=== PATIENT | female | born 1965 | race Caucasian/White ===

== ENCOUNTER 2021-11-14 11:47 | Outpatient (CLI) | payer BC, SELFPAY ==
[2021-11-14 15:32] LABS: Cholesterol* 215 mg/dL (90-199)
[2021-11-14 15:33] LABS: Glucose* 107 mg/dL (60-115); HDL Cholesterol* 61 mg/dL (>=50); LDL Cholesterol Calculated 129 mg/dL (<100); Triglycerides* 123 mg/dL (40-149)
[2021-11-14 15:51] LABS: Vitamin D 25 Hydroxy* 32 ng/mL (30-80)
== END 2021-11-14 11:48 | disposition home or self-care (01) ==
PROVIDERS: PCP Family Medicine; Visit Provider Family Medicine
DX: Z01.419 Encounter for gynecological examination (general) (routine) without abnormal findings (principal); E55.9 Vitamin D deficiency, unspecified; Z13.6 Encounter for screening for cardiovascular disorders; Z13.1 Encounter for screening for diabetes mellitus
CPT/HCPCS: 80061; 82306; 82947

== ENCOUNTER 2021-11-21 11:21 | Outpatient (CLI) | payer BC, SELFPAY ==
--- NOTE | 2021-11-21 11:30 | CRLHL7_ITS ---
For Patients: As a result of the Century Cures Act, medical imaging exams and procedure reports are released immediately into your electronic medical record. You may view this report before your referring provider. If you have questions, please contact your health care provider. BILATERAL SCREENING MAMMOGRAM WITH COMPUTER-AIDED DETECTION AND TOMOSYNTHESIS TECHNIQUE: CC and MLO views were obtained. These mammographic images have been obtained using full-field digital technique. These mammographic images were interpreted with the benefit of computer-aided detection. Breast Tomosynthesis was used in this interpretation. COMPARISON FILM: 03/31/19 diag, 03/28/19 scrn, 10/22/16, 10/02/14. FINDINGS: There are scattered areas of fibroglandular density IMPRESSION: There is no radiographic evidence for malignancy. ASSESSMENT: BI-RADS Category 1: Negative RECOMMENDATION: Routine screening mammogram in 1 year. A lay language report of this examination will be provided to the patient. Ning Card M.D. Diagnostic/Breast Radiologist [email or web address] TRUE/Dictated by: Ning Card MD @ 11/21/2021 12:27:00 PM (Electronically Signed)
== END 2021-11-21 11:22 | disposition home or self-care (01) ==
LOC: MAMMO 11:22
PROVIDERS: PCP Family Medicine; Visit Provider Family Medicine
DX: Z12.31 Encounter for screening mammogram for malignant neoplasm of breast (principal)
CPT/HCPCS: 77063; 77067

== ENCOUNTER 2022-02-14 14:30 | Outpatient (RCR) | payer BC, SELFPAY | END 2022-03-21 14:29 | disposition home or self-care (01) | PROVIDERS: PCP Family Medicine; Visit Provider Family Medicine | DX: M25.512 Pain in left shoulder (principal); Z51.89 Encounter for other specified aftercare | CPT/HCPCS: 97110; 97161 ==

== ENCOUNTER 2022-12-04 08:10 | Outpatient (CLI) | payer BC, SELFPAY | END 2022-12-04 08:11 | disposition home or self-care (01) | LOC: NFLDREF 12-06 20:07 | PROVIDERS: PCP Family Medicine; Referring Provider Family Medicine; Visit Provider Family Medicine | DX: Z01.419 Encounter for gynecological examination (general) (routine) without abnormal findings (principal); E55.9 Vitamin D deficiency, unspecified; R73.09 Other abnormal glucose; E66.3 Overweight; Z13.6 Encounter for screening for cardiovascular disorders | CPT/HCPCS: 80053; 80061; 82306 ==

== ENCOUNTER 2023-03-20 15:15 | Outpatient (CLI) | payer BC, SELFPAY ==
--- NOTE | 2023-03-20 15:20 | CRLHL7_ITS ---
For Patients: As a result of the Century Cures Act, medical imaging exams and procedure reports are released immediately into your electronic medical record. You may view this report before your referring provider. If you have questions, please contact your health care provider. BILATERAL SCREENING MAMMOGRAM WITH COMPUTER-AIDED DETECTION AND TOMOSYNTHESIS TECHNIQUE: CC and MLO views were obtained. These mammographic images have been obtained using full-field digital technique. These mammographic images were interpreted with the benefit of computer-aided detection. Breast Tomosynthesis was used in this interpretation. COMPARISON FILM: 11/21/21, 03/28/19, 10/22/16. FINDINGS: There are scattered areas of fibroglandular density IMPRESSION: There is no radiographic evidence for malignancy. ASSESSMENT: BI-RADS Category 2: Benign RECOMMENDATION: Routine screening mammogram in 1 year. A lay language report of this examination will be provided to the patient. Paul Serra M.D. Diagnostic Radiologist [email or web address] TRUE/Dictated by: Paul Serra MD @ 03/24/2023 10:22:00 AM (Electronically Signed)
== END 2023-03-20 15:16 | disposition home or self-care (01) ==
LOC: MAMMO 15:16
PROVIDERS: PCP Family Medicine; Visit Provider Family Medicine
DX: Z12.31 Encounter for screening mammogram for malignant neoplasm of breast (principal)
CPT/HCPCS: 77063; 77067

== ENCOUNTER 2023-04-29 14:27 | Outpatient (CLI) | payer BC, SELFPAY | END 2023-04-29 14:28 | disposition home or self-care (01) | LOC: NFLDUCREF 14:28 | PROVIDERS: PCP Family Medicine; Visit Provider Physician Assistant | DX: M79.671 Pain in right foot (principal) | CPT/HCPCS: 84550 ==

== ENCOUNTER 2024-02-05 08:05 | Outpatient (CLI) | payer BC, SELFPAY | END 2024-02-05 08:06 | disposition home or self-care (01) | LOC: NFLDREF 02-06 20:47 | PROVIDERS: PCP Family Medicine; Referring Provider Family Medicine; Visit Provider Family Medicine | DX: E55.9 Vitamin D deficiency, unspecified (principal); R73.09 Other abnormal glucose | CPT/HCPCS: 82306 ==

== ENCOUNTER 2024-07-22 08:29 | Outpatient (CLI) | payer BC, SELFPAY ==
--- NOTE | 2024-07-22 08:45 | CRLHL7_ITS ---
For Patients: As a result of the Century Cures Act, medical imaging exams and procedure reports are released immediately into your electronic medical record. You may view this report before your referring provider. If you have questions, please contact your health care provider. INDICATION: BILATERAL SCREENING MAMMOGRAM, ASYMPTOMATIC 59 Y/O FEMALE COMPARISON: 03/20/2023, 11/21/2021, 03/28/2019 TECHNIQUE: Digital mammogram in CC and MLO projections including computer-aided detection (CAD) and tomosynthesis. BREAST COMPOSITION: There are scattered areas of fibroglandular density. FINDINGS: No suspicious findings. ASSESSMENT: BI-RADS 1 Negative RECOMMENDATION: Annual screening mammogram. A lay language report of this examination will be provided to the patient. Dictated by: Paul Serra MD @ 07/28/2024 08:42:39 (Electronically Signed)
== END 2024-07-22 08:30 | disposition home or self-care (01) ==
LOC: MAMMO 08:30
PROVIDERS: PCP Family Medicine; Visit Provider Family Medicine
DX: Z12.31 Encounter for screening mammogram for malignant neoplasm of breast (principal)
CPT/HCPCS: 77063; 77067

== ENCOUNTER 2025-02-14 10:11 | Outpatient (CLI) | payer BC, SELFPAY | END 2025-02-14 10:12 | disposition home or self-care (01) | LOC: NFLDREF 02-21 13:31 | PROVIDERS: PCP Family Medicine; Referring Provider Family Medicine; Visit Provider Family Medicine | DX: Z00.00 Encounter for general adult medical examination without abnormal findings (principal); E78.5 Hyperlipidemia, unspecified; R73.03 Prediabetes; M81.0 Age-related osteoporosis without current pathological fracture; R53.83 Other fatigue | CPT/HCPCS: 80053; 80061; 82306 ==